=== PATIENT | male | born 1990 | race Caucasian/White ===

== ENCOUNTER 2018-12-12 05:20 | Emergency (ER) | payer OTHER ==
--- NOTE | 2018-12-12 06:19 | PDOC ---
Attending Attestation - HPI HPI: 12/12/18 06:21 The patient is a 28 year old male with no PMH who presents to the ER with nonproductive cough, subjective fevers, and multiple episodes of NB, NB vomit for the past 4 days. Patient is also complaining of loss of appetite since the onset of these symptoms. Patient denies any recent travel. He admits to positive sick contact at home. The patient denies chest pain, shortness of breath, headache and dizziness. Denies fever, chills, diarrhea and constipation. Denies dysuria, frequency, urgency and hematuria. Allergies: NKA Past surgical history: Nine reported. Social history: No reported alcohol, drug or cigarette use. <Gauri Richardson - Last Filed: 12/12/18 06:21> - Resident Resident Name: Alla Lopez - ED Attending Attestation I have performed the following: I have examined & evaluated the patient, The case was reviewed & discussed with the resident, I agree w/resident's findings & plan - Physicial Exam PE: 12/25/18 23:08 Agree with resident's exam - Medical Decision Making 12/12/18 21:59 28-year-old male with body aches fever and chills Influenza swab is positive Patient is in no acute distress He is outside the window for Tamiflu treatment He will be discharged home with recommendations for follow-up with primary care and supportive care <Vonda Krishnamurthy - Last Filed: 12/25/18 23:08>
--- NOTE | 2018-12-12 06:23 | PDOC ---
History of Present Illness - General Chief Complaint: Cold Symptoms Stated Complaint: COUGH,FEVER History Source: Patient - History of Present Illness Initial Comments: 12/12/18 06:23 The patient is a 28 year old Arabic speaking/LEP male with no reported significant PMH who presents to our ED this morning c/o 4 day h/o subjective fever, cough (non productive) and 4-5 episodes of NBNB emesis. Also notes two episodes of NB watery stool yesterday. Presents w/three children who are also seeking evaluation for similar symptoms. Denies any recent travel. Did not receive the flu shot. The patient denies chest pain, abdominal pain, shortness of breath, numbness, tingling, headache, sore throat. NKDA Surgical: none reported Social: denies toxic habits As per EMR, patient has not been evaluated in our ED on prior occasion. Past History - Past Medical History Allergies/Adverse Reactions: Allergies Allergy/AdvReac Type Severity Reaction Status Date / Time No Known Allergies Allergy Verified 12/12/18 06:10 Home Medications: Ambulatory Orders Benzonatate [Tessalon Pearls -] 100 mg PO TID #21 capsule 12/12/18 COPD: No Other medical history: Pt denies - Suicide/Smoking/Psychosocial Hx Smoking History: Never smoked Have you smoked in the past 12 months: No Information on smoking cessation initiated: No Hx Alcohol Use: No Drug/Substance Use Hx: No Review of Systems - Review of Systems Constitutional: Yes: Fever. No: Chills HEENTM: No: Recent change in vision Respiratory: Yes: Cough. No: Shortness of Breath, Wheezing, Hemoptysis Cardiac (ROS): No: Chest Pain, Lightheadedness, Palpitations, Syncope ABD/GI: No: Constipated, Diarrhea, Nausea, Vomiting : No: Burning *Physical Exam - Vital Signs Last Vital Signs Temp Pulse Resp BP Pulse Ox 98.6 F 96 H 18 101/68 96 12/12/18 06:11 12/12/18 06:11 12/12/18 06:11 12/12/18 06:11 12/12/18 06:11 - Physical Exam General Appearance: Yes: Nourished, Appropriately Dressed HEENT: positive: Normal Voice, Hearing Grossly Normal. negative: TM Bulging, TM Dull, TM Erythema Neck: positive: Trachea midline, Supple Respiratory/Chest: positive: Lungs Clear, Normal Breath Sounds. negative: Labored Respiration, Rapid RR, Crackles, Wheezing Cardiovascular: positive: S1, S2, Edema. negative: JVD, Murmur Gastrointestinal/Abdominal: positive: Normal Bowel Sounds, Soft Moderate Sedation - Procedure Monitoring Vital Signs: Procedure Monitoring Vital Signs Temperature 98.6 F 12/12/18 06:11 Pulse Rate 96 H 12/12/18 06:11 Respiratory Rate 18 12/12/18 06:11 Blood Pressure 101/68 12/12/18 06:11 O2 Sat by Pulse Oximetry (%) 96 12/12/18 06:11 Medical Decision Making - Medical Decision Making 12/12/18 06:29 28 year old male with cough, subjective fever, diarrhea. VS unremarkable. Will send Influenza, even though patient is outside of window for efficacious treatment, patient presents with 16 day old w/similar symptoms. Likely disposition is home with supportive care. Influenza A positive. Patient to be discharged home with supportive care including cough suppressant, return precautions. Clinical Impression: Influenza A I discussed the physical exam findings, ancillary test results and final diagnoses with the patient. I answered all of the patient's questions. The patient was satisfied with the care received and felt comfortable with the discharge plan and treatment plan. The patient will return to the Emergency Department with any new, persistent or worsening symptoms. *DC/Admit/Observation/Transfer Diagnosis at time of Disposition: Influenza A - Discharge Dispostion Disposition: HOME Condition at time of disposition: Good Decision to Admit order: No - Prescriptions Prescriptions: Benzonatate [Tessalon Pearls -] 100 mg PO TID #21 capsule - Referrals - Patient Instructions Printed Discharge Instructions: How to Avoid a Cold or Flu Additional Instructions: We have sent a prescription to your pharmacy for a cough suppressant. Please use the medication as needed. Follow-up with your primary care doctor in the next 1 week. Drink plenty of water and wash your hands often, especially after coughing. Return to Emergency Department for any new/worsening/concerning symptoms. Hemos enviado magaly receta a mena farmacia para un supresor de la tos. Por favor use el medicamento cuando sea necesario. Sarah un seguimiento con mena mdico de atencin primaria en la prxima semana. Marjorie angella agua y lvese las michelle con frecuencia, especialmente despus de toser. Regrese al Departamento de Emergencias para cualquier sntoma nuevo / que empeora / relacionado. - Post Discharge Activity
[2018-12-12 06:30] VITALS: BP 101/68; PULSE 96; TEMP 98.6; BMI 23.9
== END 2018-12-12 07:34 | disposition home or self-care (01) ==
LOC: JER 05:20
DX: B34.9 Viral infection, unspecified (principal)
CPT/HCPCS: 87804; 99281-25; 99282-25